=== PATIENT | female | born 1950 | race Hispanic/Latino ===

== ENCOUNTER 2017-11-01 13:42 | Inpatient (IN) | payer MEDICAID, OTHER ==
[2017-11-01] MEDS ORDERED: ATROPINE SULFATE 0.1 MG/ML 10 ML SYG IVP ONE (13:49)
[2017-11-01 14:22] LABS: BASOPHILS % (AUTO) 0.2 % (0.0-5.0); EOSINOPHILS % (AUTO) 0.1 % (0.0-8.0); HEMATOCRIT 26.2 % (36-48); LYMPHOCYTES % (AUTO) 17.3 % (21.0-51.0); MEAN CORPUSCULAR HEMOGLOBIN 30.5 pg (27.0-33.0); MEAN CORPUSCULAR HGB CONC 34.5 g/dL (32.0-36.0); MEAN CORPUSCULAR VOLUME 88.5 fL (79-99); MONOCYTES % (AUTO) 3.9 % (3.0-13.0); NEUTROPHILS % (AUTO) 78.5 % (40.0-77.0); PLATELET COUNT (AUTO) 147 K/uL (130-400); RED BLOOD CELL COUNT(AUTO) 2.96 MIL/uL (4.00-5.50); RED CELL DISTRIBUTION WIDTH 14.8 % (11.0-15.5); WHITE BLOOD COUNT (AUTO) 7.3 K/uL (4.8-10.8)
[2017-11-01 14:49] LABS: ALBUMIN 1.8 g/dL (3.5-5.0); BILIRUBIN,TOTAL 0.3 mg/dL (0.2-1.0); CREATINE KINASE MB 1.1 ng/mL (0.5-3.6); CREATININE 0.5 mg/dL (0.5-1.5); TOTAL PROTEIN, SERUM 4.1 g/dL (6.0-8.3)
[2017-11-01 14:51] LABS: POTASSIUM 2.5 mmol/L (3.5-5.1)
[2017-11-01 14:53] LABS: INR 1.34 (0.85-1.15); PARTIAL THROMBOPLASTIN TIME 30.1 SEC (26.3-35.5)
[2017-11-01] MEDS ORDERED: CEFAZOLIN 1GM / D5W 50ML 150 ML ONE (14:55)
[2017-11-01] MEDS ORDERED: BUPIVACAINE/PF 0.25% 30ML VIAL IJ ONE (14:55)
[2017-11-01] MEDS ORDERED: POTASSIUM CHLORIDE 20MEQ/100ML 100 ML IV ONE (14:55)
[2017-11-01] MEDS ORDERED: LIDOCAINE HCL 1% MDV 50ML VIAL ONE (14:56)
[2017-11-01] MEDS ORDERED: ISOVUE-300 100 ML VIAL IV ONE (14:56)
[2017-11-01] MEDS ORDERED: MAG HYDROX/AL HYDROX/SIMETH ES 30 ML SUSP UDCUP PO PRN (15:00)
[2017-11-01] MEDS ORDERED: ACETAMINOPHEN-CODEINE 300/30MG TAB PO PRN (15:00)
[2017-11-01] MEDS ORDERED: POTASSIUM CHLORIDE 20MEQ/100ML 100 ML IV PRN ×2 (15:00→18:15)
[2017-11-01] MEDS ORDERED: HYDRALAZINE HCL 20 MG/ML VIAL IV PRN (15:00)
[2017-11-01] MEDS ORDERED: NITROGLYCERIN 0.4 MG SL TAB SL PRN (15:00)
[2017-11-01] MEDS ORDERED: GUAIFENESIN-DM 200/20 MG 10 ML PO PRN (15:00)
[2017-11-01] MEDS ORDERED: ACETAMINOPHEN 325 MG TAB PO PRN ×4 (15:00→18:15)
[2017-11-01] MEDS ORDERED: MORPHINE SULFATE 4 MG/1ML SYG IV PRN (15:00)
[2017-11-01] MEDS ORDERED: ONDANSETRON HCL 4 MG/2 ML VIAL IV PRN ×2 (15:00→18:15)
[2017-11-01] MEDS ORDERED: POTASSIUM CHLORIDE 20 MEQ ERTAB PO PRN ×2 (15:00→18:15)
[2017-11-01] MEDS ORDERED: LIDOCAINE HCL-MPF 1% 2ML VIAL IVP PRN ×2 (15:00→18:15)
[2017-11-01] MEDS ORDERED: LACTULOSE 20 GM/30 ML UDCUP PO PRN (15:00)
[2017-11-01] MEDS ORDERED: POTASSIUM CHLORIDE 10% ELIXIR 20 MEQ/15 ML UDCUP PO PRN ×2 (15:00→18:15)
[2017-11-01] MEDS ORDERED: MEPERIDINE-PF 50 MG/ML SYG ONE (15:06)
[2017-11-01] MEDS ORDERED: MIDAZOLAM HCL 1 MG/ML 2ML VIAL ONE ×2 (15:06→16:25)
[2017-11-01] MEDS ORDERED: MAGNESIUM 2GM PREMIX 50ML 50 ML IV ONE (15:42)
[2017-11-01] MEDS ORDERED: CALCIUM GLUCONATE 1 GM/10 ML VIAL IV ONE (16:24)
[2017-11-01] MEDS ORDERED: DOXY100C2 PO (18:14)
[2017-11-01] MEDS ORDERED: DEXTROSE 50%-WATER 50 ML DISP.SYRIN IV PRN (18:15)
[2017-11-01] MEDS ORDERED: GLUCAGON 1MG KIT 1 MG ML IM PRN (18:15)
[2017-11-01 18:30] VITALS: BP 174/83
[2017-11-01 18:45] VITALS: BP 160/81
[2017-11-01 19:00] VITALS: BP 152/76
[2017-11-01 19:04] LABS: ALBUMIN 3.1 g/dL (3.5-5.0); BILIRUBIN,TOTAL 0.6 mg/dL (0.2-1.0); CREATININE 0.8 mg/dL (0.5-1.5); MAGNESIUM 2.4 mg/dL (1.80-2.40); PHOSPHORUS 4.1 mg/dL (2.5-4.9); POTASSIUM 3.9 mmol/L (3.5-5.1); TOTAL PROTEIN, SERUM 6.9 g/dL (6.0-8.3)
[2017-11-01 19:37] VITALS: BP 159/84
[2017-11-01] MEDS: LABETALOL HCL 200 MG TABLET PO SCH (21:20)
[2017-11-01] MEDS: FAMOTIDINE/PF 20 MG/2 ML VIAL IV SCH (21:20)
[2017-11-01] MEDS: INSULIN HUMULIN R 100 UNIT/ML 3ML SQ SCH (21:25)
[2017-11-02] VITALS (7 sets, daily range): BP systolic 130–170; BP diastolic 57–79
[2017-11-02 04:16] LABS: HEMATOCRIT 32.2 % (36-48); MEAN CORPUSCULAR HEMOGLOBIN 29.7 pg (27.0-33.0); MEAN CORPUSCULAR HGB CONC 34.1 g/dL (32.0-36.0); MEAN CORPUSCULAR VOLUME 87.3 fL (79-99); PLATELET COUNT (AUTO) 174 K/uL (130-400); RED BLOOD CELL COUNT(AUTO) 3.68 MIL/uL (4.00-5.50); RED CELL DISTRIBUTION WIDTH 14.8 % (11.0-15.5)
[2017-11-02 04:24] LABS: RETICULOCYTE % (AUTO) 2.24 % (0.42-2.23)
[2017-11-02 04:37] LABS: CREATININE 0.8 mg/dL (0.5-1.5); POTASSIUM 3.7 mmol/L (3.5-5.1)
[2017-11-02 04:41] LABS: HEMOGLOBIN A1C 7.8 % (4.0-6.0)
[2017-11-02 04:55] LABS: % IRON SATURATION 13.3 % (22-44)
[2017-11-02] MEDS ORDERED: CEFAZOLIN SODIUM 1 GM VIAL IVP SCH (05:00)
[2017-11-02] MEDS: INSULIN HUMULIN R 100 UNIT/ML 3ML SQ SCH ×4 (06:21→21:02)
[2017-11-02] MEDS: LABETALOL HCL 200 MG TABLET PO SCH ×2 (08:51→20:50)
[2017-11-02] MEDS: FAMOTIDINE/PF 20 MG/2 ML VIAL IV SCH ×2 (08:51→20:50)
[2017-11-03 03:44] VITALS: BP 146/74
[2017-11-03] MEDS: INSULIN HUMULIN R 100 UNIT/ML 3ML SQ SCH ×2 (05:43→12:37)
[2017-11-03 07:00] VITALS: BP 170/81
[2017-11-03 11:00] VITALS: BP 180/79
[2017-11-03] MEDS: FAMOTIDINE/PF 20 MG/2 ML VIAL IV SCH (11:24)
[2017-11-03] MEDS: LABETALOL HCL 200 MG TABLET PO SCH (11:24)
[2017-11-03] MEDS ORDERED: MEROPENEM 500 MG VIAL IVP ONE (12:30)
[2017-11-03] MEDS ORDERED: MEROPENEM 500MG+NS 50ML 50 ML IV SCH (14:00)
[2017-11-03] MEDS ORDERED: MEROPENEM 500 MG VIAL IVP SCH (14:00)
== END 2017-11-03 18:25 | disposition home or self-care (01) | DRG 243 ==
LOC: EDH 13:42 → EDHIP 13:43 → 2AH 17:29
PROVIDERS: ADMIT Internal Medicine; ATTEND Internal Medicine
PROC: 0JH606Z Insertion of Pacemaker, Dual Chamber into Chest Subcutaneous Tissue and Fascia, Open Approach (ICD-10-PCS; principal; 2017-11-01)
PROC: 02HL3JZ Insertion of Pacemaker Lead into Left Ventricle, Percutaneous Approach (ICD-10-PCS; 2017-11-01)
PROC: 02HK3JZ Insertion of Pacemaker Lead into Right Ventricle, Percutaneous Approach (ICD-10-PCS; 2017-11-01)
DX: I44.2 Atrioventricular block, complete (principal); E87.0 Hyperosmolality and hypernatremia; E83.51 Hypocalcemia; E87.8 Other disorders of electrolyte and fluid balance, not elsewhere classified; D64.9 Anemia, unspecified; E11.9 Type 2 diabetes mellitus without complications; N39.0 Urinary tract infection, site not specified; E66.9 Obesity, unspecified; E86.0 Dehydration; E87.6 Hypokalemia; I10 Essential (primary) hypertension; Z83.3 Family history of diabetes mellitus
CPT/HCPCS: 33208; 33225; 36415; 71045; 71046; 80048; 80053; 80061; 82550; 82553; 82607; 82728; 82746; 82948; 83036; 83605; 83735; 84100; 84132; 84443; 84484; 85025; 85027; 85610; 85730; 87040; 87088; 87186; 87804; 93005; 93306; 99152; 99153; 99291; A4218; C1769; J0461; J0610; J0690; J1815; J2175; J2185; J2250; J3475; J3480; J3490; Q9967